=== PATIENT | female | born 1955 | race Caucasian/White ===

== ENCOUNTER 2018-04-11 06:23 | Day surgery (SDC) | payer OTHER ==
[~2018-04-11] VITALS: Ht 157.5 cm; Wt 70.0 kg
[2018-04-11] MEDS ORDERED: BENZOCAINE 20% 50 MCG/SPRAY 57 GM TP ONE (06:24)
[2018-04-11] MEDS ORDERED: LIDOCAINE 4% 50 ML SOLUTION TP ONE (06:24)
[2018-04-11] MEDS ORDERED: LIDOCAINE 2% 30 ML JELLY TP ONE (06:24)
[2018-04-11] MEDS ORDERED: ALBUTEROL SULFATE 2.5 MG/0.5 ML NEB SOLUTION NEB ONE (06:24)
[2018-04-11] MEDS ORDERED: SODIUM CHLORIDE 0.9% 1,000 ML IV ONE ×2 (06:30→07:08)
[2018-04-11] MEDS ORDERED: MIDAZOLAM HCL 2 MG/2 ML VIAL ONE (06:47)
[2018-04-11] MEDS ORDERED: FentaNYL CITRATE-PF 100 MCG/2 ML VIAL ONE (06:48)
[2018-04-11 07:34] LABS: GLUCOMETER DEV NAME(LOC) SDS.; GLUCOSE,POINT OF CARE 357 MG/DL (70-110)
[2018-04-11] MEDS ORDERED: PRED10 PO (07:53)
[2018-04-11] MEDS ORDERED: FLUT110HFA IH (07:53)
[2018-04-11] MEDS ORDERED: DSS100 PO (07:53)
[2018-04-11] MEDS ORDERED: TRAZ-219 PO (07:53)
[2018-04-11] MEDS ORDERED: HYDR25TA PO (07:53)
[2018-04-11] MEDS ORDERED: METF-960 PO (07:53)
[2018-04-11] MEDS ORDERED: CETI-290 PO (07:53)
[2018-04-11] MEDS ORDERED: ATOR40TA28 PO (07:53)
[2018-04-11] MEDS ORDERED: GABA-531 PO (07:53)
[2018-04-11] MEDS ORDERED: FURO20 PO (07:53)
[2018-04-11] MEDS ORDERED: DULO60CA44 PO (07:53)
[2018-04-11] MEDS ORDERED: SULF1TAB42 PO (07:53)
[2018-04-11] MEDS ORDERED: LISI-662 PO (07:53)
[2018-04-11] MEDS ORDERED: INSU100V SQ ×3 (07:53)
[2018-04-11] MEDS ORDERED: ALBU8.5H8 IH (07:53)
[2018-04-11] MEDS ORDERED: ASPI81 PO (07:53)
[2018-04-11] MEDS ORDERED: INSLAN SQ (07:53)
[2018-04-11] MEDS ORDERED: LEVO100 PO (07:53)
[2018-04-11] MEDS ORDERED: MethylPREDNISolone SOD SUCC 125 MG/2 ML VIAL IVP ONE (08:30)
[2018-04-11] MEDS ORDERED: MethylPREDNISolone SOD SUCC 125 MG/2 ML VIAL ONE (08:53)
[2018-04-11] MEDS ORDERED: OXYGEN THERAPY IH SCH (20:00)
== END 2018-04-11 10:50 | disposition home or self-care (01) ==
LOC: SURGERY 06:23
PROVIDERS: ATTEND Internal Medicine Critical Care Medicine
DX: J38.4 Edema of larynx (principal); B37.0 Candidal stomatitis; J84.111 Idiopathic interstitial pneumonia, not otherwise specified; J98.09 Other diseases of bronchus, not elsewhere classified; J98.8 Other specified respiratory disorders; I10 Essential (primary) hypertension; E11.9 Type 2 diabetes mellitus without complications; E78.00 Pure hypercholesterolemia, unspecified; I70.8 Atherosclerosis of other arteries; Z79.4 Long term (current) use of insulin; Z79.84 Long term (current) use of oral hypoglycemic drugs; Z79.891 Long term (current) use of opiate analgesic; Z90.710 Acquired absence of both cervix and uterus; Z90.49 Acquired absence of other specified parts of digestive tract; Z87.01 Personal history of pneumonia (recurrent); Z86.73 Personal history of transient ischemic attack (TIA), and cerebral infarction without residual deficits; Z79.82 Long term (current) use of aspirin; Z79.899 Other long term (current) drug therapy; Z98.890 Other specified postprocedural states
CPT/HCPCS: 31623; 31624; 71045; 82962; 87015; 87070; 87186; 87205; 87206; 87220; 88108; 88312; 99152; J2250; J2930; J3010; J7030